=== PATIENT | male | born 1955 | race Caucasian/White ===

== ENCOUNTER → 2023-12-04 10:49 | Outpatient (REF) | payer MEDICARE, OTHER, SELFPAY ==
[2023-12-04 14:44] LABS: % Basophils 0.7 % (0-2); % Eosinophils 1.8 % (0-6); % Immature Granulocytes 0.2 % (0-0.5); % Lymphocytes 25.1 % (20.5-51.1); % Monocytes 8.4 % (1.7-9.3); % Neutrophils 63.8 % (42.2-75.2); Absolute Basophils 0.1 10^3/uL (0-0.2); Absolute Eosinophils 0.2 10^3/uL (0-0.7); Absolute Lymphocytes 2.1 10^3/uL (1.2-3.4); Absolute Monocytes 0.7 10^3/uL (0.1-0.6); Absolute Neutrophils 5.3 10^3/uL (1.4-6.5); Hematocrit 42.9 % (39.0-52.0); Hemoglobin 14.9 g/dL (13.0-18.0); Mean Corp Hgb Conc. 34.7 g/dL (33.0-37.0); Mean Corpuscular Hgb 31.5 pg (27.0-31.0); Mean Corpuscular Volume 90.7 fL (80.0-94.0); Mean Platelet Volume 10.6 fL (7.4-10.4); Nucleated Red Blood Cells % 0 % (-); Platelet Count 321 10^3/uL (130-400); Red Blood Cell Count 4.73 10^6/uL (4.70-6.10); Red Cell Dist. Width 12.7 % (11.5-14.5); White Blood Cell Count 8.3 10^3/uL (4.8-10.8)
[2023-12-04 15:18] LABS: Microalbumin, Random Urine 6.2 mg/dl (0.6-1.7)
[2023-12-04 15:22] LABS: ALT (SGPT) 29 U/L (0-50); AST (SGOT) 33 U/L (17-59); Albumin 4.5 g/dl (3.5-5.0); Alkaline Phosphatase 72 U/L (38-126); Blood Urea Nitrogen 25 mg/dl (9-20); Carbon Dioxide 24 mmol/L (22-30); Chloride 107 mmol/L (98-107); Glucose 99 mg/dl (70-99); HDL Cholesterol 57 mg/dl; LDL Cholesterol, Calculated 56 mg/dl; Potassium 4.5 mmol/L (3.5-5.1); Sodium 142 mmol/L (135-145); Total Bilirubin 1.1 mg/dl (0.2-1.3); Total Cholesterol 122 mg/dl (50-199); Total Protein 8.1 g/dl (6.3-8.2); Triglyceride 49 mg/dl (10-149); Very Low Density Lipoprotein 9 mg/dl (0-30); eGFR > 60.00
[2023-12-04 15:40] LABS: TSH Reflex To Free T4 0.61 uIU/ml (0.47-4.68)
[2023-12-05 13:47] LABS: Glycohemoglobin (HgbA1c) 5.4 % (4.0-5.6)
== END ==
LOC: HWLAB 10:49
PROVIDERS: ATTENDING PHYSICIAN Registered Nurse
DX: E11.59 Type 2 diabetes mellitus with other circulatory complications (principal); E78.00 Pure hypercholesterolemia, unspecified; I11.9 Hypertensive heart disease without heart failure; I25.810 Atherosclerosis of coronary artery bypass graft(s) without angina pectoris
CPT/HCPCS: 36415; 80053; 80061; 82043; 82570; 83036; 84443; 85025

== ENCOUNTER → 2024-09-17 08:56 | Outpatient (REF) | payer MEDICARE, OTHER, SELFPAY ==
[2024-09-17 13:14] LABS: % Basophils 0.5 % (0-2); % Eosinophils 2.5 % (0-6); % Immature Granulocytes 0.3 % (0-0.5); % Lymphocytes 20.8 % (20.5-51.1); % Monocytes 10.3 % (1.7-9.3); % Neutrophils 65.6 % (42.2-75.2); Absolute Eosinophils 0.2 10^3/uL (0-0.7); Absolute Lymphocytes 1.6 10^3/uL (1.2-3.4); Absolute Monocytes 0.8 10^3/uL (0.1-0.6); Hematocrit 44.9 % (39.0-52.0); Hemoglobin 15.3 g/dL (13.0-18.0); Mean Corp Hgb Conc. 34.1 g/dL (33.0-37.0); Mean Corpuscular Hgb 31.1 pg (27.0-31.0); Mean Corpuscular Volume 91.3 fL (80.0-94.0); Mean Platelet Volume 10.7 fL (7.4-10.4); Nucleated Red Blood Cells % 0 % (-); Platelet Count 268 10^3/uL (130-400); Red Blood Cell Count 4.92 10^6/uL (4.70-6.10); Red Cell Dist. Width 12.4 % (11.5-14.5); White Blood Cell Count 7.6 10^3/uL (4.8-10.8)
[2024-09-17 13:23] LABS: ALT (SGPT) 34 U/L (0-50); AST (SGOT) 25 U/L (17-59); Albumin 4.5 g/dl (3.5-5.0); Alkaline Phosphatase 79 U/L (38-126); Blood Urea Nitrogen 20 mg/dl (9-20); Calcium 9.5 mg/dl (8.4-10.2); Carbon Dioxide 25 mmol/L (22-30); Chloride 106 mmol/L (98-107); Glucose 140 mg/dl (70-99); HDL Cholesterol 40 mg/dl; LDL Cholesterol, Calculated 77 mg/dl; Potassium 3.8 mmol/L (3.5-5.1); Sodium 144 mmol/L (135-145); Total Bilirubin 0.9 mg/dl (0.2-1.3); Total Cholesterol 133 mg/dl (50-199); Total Protein 7.7 g/dl (6.3-8.2); Triglyceride 81 mg/dl (10-149); Very Low Density Lipoprotein 16 mg/dl (0-30); eGFR > 60.00
[2024-09-17 13:50] LABS: TSH Reflex To Free T4 0.79 uIU/ml (0.47-4.68)
[2024-09-17 13:59] LABS: Microalbumin, Random Urine <0.6 mg/dl (0.6-1.7)
== END ==
LOC: HWRAD 08:56
PROVIDERS: ATTENDING PHYSICIAN Registered Nurse
DX: Z87.891 Personal history of nicotine dependence (principal); E11.59 Type 2 diabetes mellitus with other circulatory complications; E78.00 Pure hypercholesterolemia, unspecified; I11.9 Hypertensive heart disease without heart failure
CPT/HCPCS: 36415; 71271; 80053; 80061; 82043; 82570; 83036; 84443; 85025

== ENCOUNTER → 2025-04-20 08:22 | Outpatient (REF) | payer MEDICARE, OTHER, SELFPAY ==
[2025-04-20 11:34] LABS: ALT (SGPT) 43 U/L (0-50); AST (SGOT) 29 U/L (17-59); Albumin 4.6 g/dl (3.5-5.0); Alkaline Phosphatase 80 U/L (38-126); Blood Urea Nitrogen 17 mg/dl (9-20); Calcium 9.3 mg/dl (8.4-10.2); Carbon Dioxide 28 mmol/L (22-30); Chloride 101 mmol/L (98-107); Glucose 139 mg/dl (70-99); HDL Cholesterol 44 mg/dl; LDL Cholesterol, Calculated 86 mg/dl; Potassium 4.2 mmol/L (3.5-5.1); Sodium 138 mmol/L (135-145); Total Protein 8.2 g/dl (6.3-8.2); Very Low Density Lipoprotein 15 mg/dl (0-30); eGFR > 60.00
[2025-04-20 12:11] LABS: Glycohemoglobin (HgbA1c) 5.9 % (4.0-5.9)
== END ==
LOC: HWRAD 08:22
PROVIDERS: ATTENDING PHYSICIAN Registered Nurse
DX: E04.1 Nontoxic single thyroid nodule (principal); E78.00 Pure hypercholesterolemia, unspecified; E11.59 Type 2 diabetes mellitus with other circulatory complications
CPT/HCPCS: 36415; 76536; 80053; 80061; 83036